=== PATIENT | male | born 1970 | race Caucasian/White ===

== ENCOUNTER 2016-09-27 07:53 | Emergency (ER) | payer SELFPAY ==
[~2016-09-27] VITALS: Ht 195.6 cm; Wt 100.0 kg
[2016-09-27 07:53] VITALS: BP 136/79; PULSE 104; RESP 16; TEMP 100.3; O2SAT 97
--- NOTE | 2016-09-27 09:13 | PD ---
HPI Chief Complaint: Cold / Flu Symptoms Time Seen by Provider: 09:13 Travel History International Travel<30 days: No Contact w/Intl Traveler<30days: No Traveled to known affect area: No History of Present Illness HPI 46-year-old male presents to the emergency department for evaluation of cold symptoms for 1 week, sooner, bilateral lower extremity edema. Patient states he has cough, congestion, body aches for 1 week. He reports he has felt feverish, but has not checked his temperature. Patient is a temperature of 100.3 in triage. Patient does admit to IV drug use. He states he only started 2 days ago and has been injecting IV Dilaudid. Patient is also mildly tachycardic with heart rate 104 in triage. He states he has history of hypothyroidism and is supposed to take Synthroid but is not taking it. Patient also states he has noticed some bilateral lower extremity edema recently after working all day. Patient states the edema is mild at this time. PFSH Past Medical History Diminished Hearing: No Social History Alcohol Use: Yes Tobacco Use: Yes Substance Use: Yes (IV Dilaudid) Allergies-Medications (Allergen,Severity, Reaction): Coded Allergies: No Known Allergies (Unverified , 09/27/16) Reported Meds & Prescriptions Reported Meds & Active Scripts Active Review of Systems Except as stated in HPI: all other systems reviewed are Neg Physical Exam Narrative GENERAL: Well-developed well-nourished male patient, ambulatory. Temp 100.3. SKIN: Warm and dry. HEAD: Normocephalic. Atraumatic. ENT: Mucosa pink and moist. No erythema or exudates. No uvular edema. No uvular , palatal, or tonsillar deviation. Airway patent. Nasal turbinates appear normal without nasal blood, purulent drainage or septal hematoma. Bilateral tympanic membranes are clear without erythema or perforation. EYES: No scleral icterus. No injection or drainage. NECK: Supple, trachea midline. No JVD or lymphadenopathy. CARDIOVASCULAR: Regular rhythm without murmurs, gallops, or rubs. Patient is mildly tachycardic. RESPIRATORY: Breath sounds equal bilaterally. No accessory muscle use. Lungs sounds clear to auscultation. GASTROINTESTINAL: Abdomen soft, non-tender, nondistended. MUSCULOSKELETAL: No cyanosis, or edema. BACK: Nontender without obvious deformity. No CVA tenderness. Data Data Last Documented VS Vital Signs Date Time Temp Pulse Resp B/P Pulse Ox O2 Delivery O2 Flow Rate FiO2 09/27/16 07:53 100.3 104 16 136/79 97 Room Air MDM Medical Decision Making Medical Screen Exam Complete: Yes Emergency Medical Condition: Yes Medical Record Reviewed: Yes Differential Diagnosis Pneumonia versus influenza versus viral syndrome versus endocarditis versus sepsis Narrative Course 46-year-old male presents to the emergency department for evaluation of cold symptoms for 1 week, fever, bilateral lower extremity edema. Patient is an IV drug user. He has a temperature 100.3 and is mildly tachycardic at 104. Patient is originally seen and evaluated in fast track. He is moved to medical pod for further evaluation and disposition. Dee Dee Cid Sep 27, 2016 09:13
[2016-09-27] MEDS ORDERED: SYNT25TA PO (09:20)
[2016-09-27] MEDS ORDERED: SODIUM CHLOR 0.9% 1000 ML INJ 1,000 ML IV SCH (09:29)
[2016-09-27] MEDS ORDERED: SODIUM CHLORIDE 0.9% FLUSH 5 ML FLUSH IVF PRN (09:30)
[2016-09-27] MEDS ORDERED: ACETAMINOPHEN 325 MG TAB PO ONE (09:30)
--- NOTE | 2016-09-27 09:35 | PD ---
Physical Exam Date Seen by Provider: Sep 27, 2016 Narrative The patient presents to the [facility] following triage for evaluation of cough and fever. Please see the H&P done by the PA in triage. Data Data Last Documented VS Vital Signs Date Time Temp Pulse Resp B/P Pulse Ox O2 Delivery O2 Flow Rate FiO2 09/27/16 11:26 70 16 108/59 95 09/27/16 07:53 100.3 Room Air Orders Electrocardiogram (09/27/16 09:29) Basic Metabolic Panel (Bmp) (09/27/16 09:29) Complete Blood Count With Diff (09/27/16 09:29) Lactic Acid Sepsis Protocol (09/27/16 09:29) Blood Culture (09/27/16 09:29) Sputum Culture And Gram Stain (09/27/16 09:29) Chest, Single Ap (09/27/16 09:29) Sodium Chlor 0.9% 1000 Ml Inj (Ns 1000 M (09/27/16 09:29) Sodium Chloride 0.9% Flush (Ns Flush) (09/27/16 09:30) Acetaminophen (Tylenol) (09/27/16 09:30) Influenzae A/B Antigen (09/27/16 09:29) Sodium Chlor 0.9% 1000 Ml Inj (Ns 1000 M (09/27/16 10:45) Labs Laboratory Tests Test 09/27/16 09/27/16 09:45 09:51 White Blood Count 4.2 TH/MM3 Red Blood Count 4.28 MIL/MM3 Hemoglobin 13.0 GM/DL Hematocrit 38.2 % Mean Corpuscular Volume 89.2 FL Mean Corpuscular Hemoglobin 30.4 PG Mean Corpuscular Hemoglobin 34.1 % Concent Red Cell Distribution Width 14.0 % Platelet Count 132 TH/MM3 Mean Platelet Volume 8.4 FL Neutrophils (%) (Auto) 91.2 % Lymphocytes (%) (Auto) 4.3 % Monocytes (%) (Auto) 3.9 % Eosinophils (%) (Auto) 0.4 % Basophils (%) (Auto) 0.2 % Neutrophils # (Auto) 3.9 TH/MM3 Lymphocytes # (Auto) 0.2 TH/MM3 Monocytes # (Auto) 0.2 TH/MM3 Eosinophils # (Auto) 0.0 TH/MM3 Basophils # (Auto) 0.0 TH/MM3 CBC Comment DIFF FINAL Differential Comment Sodium Level 136 MEQ/L Potassium Level 3.2 MEQ/L Chloride Level 105 MEQ/L Carbon Dioxide Level 22.5 MEQ/L Anion Gap 9 MEQ/L Blood Urea Nitrogen 13 MG/DL Creatinine 1.02 MG/DL Estimat Glomerular Filtration 78 ML/MIN Rate Random Glucose 149 MG/DL Calcium Level 8.0 MG/DL Lactic Acid Level 2.5 mmol/L [facility] Supervised Visit with HOMER: Yes Interpretation(s) EKG shows a normal sinus rhythm with no acute ischemic change. He has no old EKGs for comparison. Differential Diagnosis Differential diagnosis includes but is not limited to viral respiratory illness , bronchitis, pneumonia, allergies, CHF, asthma/COPD. Narrative Course Last Impressions Chest X-Ray 09/27/16 09 Signed Impressions: Service Date/Time: Tuesday, September 27, 2016 09:28 - CONCLUSION: 1. Mild patchy opacity at the lung bases with no consolidation. This may represent scarring and or atelectasis. 2. No focal consolidation. Douglas Carballo MD Chest x-ray independently viewed by me. CBC & BMP Diagram 09/27/16 09:45 Lactic acid is 2.5. Flu screen is negative. The patient states that he is feeling much better following fluid resuscitation and Tylenol. I anticipate discharge following his second liter of fluid. Sepsis Criteria SIRS Criteria (2 or more): Heart rate over 90 Severe Sepsis (+one): Lactate >2 Diagnosis Primary Impression: Viral syndrome Additional Impression: Hypokalemia Patient Instructions: General Instructions, Hypokalemia (ED), Viral Syndrome ( ED) Med/Other Pt SpecificInfo: Prescription(s) given Scripts Potassium Chloride ER 20 Meq Tab20 Meq PO BID 5 Days Ref 0 Prov:Jil Melchor MD 09/27/16 Disposition: 01 DISCHARGE HOME Condition: Stable Jil Melchor MD Sep 27, 2016 09:35
--- NOTE | 2016-09-27 09:49 | RADRPT ---
EXAM DATE/TIME: 09/27/2016 09:28 [facility] COMPARISON: No previous studies available for comparison. INDICATIONS : Cough. MEDICAL HISTORY : None. SURGICAL HISTORY : None. ENCOUNTER: Initial ACUITY: 4 - 6 days PAIN SCORE: 0/10 LOCATION: Bilateral chest FINDINGS: A single view of the chest demonstrates the lungs to be symmetrically aerated without evidence of mas s, confluent infiltrate or effusion. There is mild patchy opacity at both lung bases with no consoli dation. The cardiomediastinal contours are unremarkable. There is an old fracture deformity of the ri ght mid clavicle. CONCLUSION: 1. Mild patchy opacity at the lung bases with no consolidation. This may represent scarring and or at electasis. 2. No focal consolidation. Douglas Carballo MD on September 27, 2016 at 9:46 Board Certified Radiologist. This report was verified electronically.
[2016-09-27 10:09] LABS: AUTOMATED NEUTROPHIL # 3.9 TH/MM3 (1.8-7.7); BASOPHIL % 0.2 % (0.0-2.0); EOSINOPHIL % 0.4 % (0.0-4.0); HEMATOCRIT 38.2 % (39.0-51.0); HEMO FLAGS DIFF FINAL; LYMPH % 4.3 % (9.0-44.0); LYMPHOCYTE # 0.2 TH/MM3 (1.0-4.8); MEAN CELL VOLUME 89.2 FL (80.0-100.0); MEAN CORPUSCULAR HEMOGLOBIN 30.4 PG (27.0-34.0); MEAN CORPUSCULAR HGB CONC 34.1 % (32.0-36.0); MONO % 3.9 % (0.0-8.0); NEUT % 91.2 % (16.0-70.0); PLATELET COUNT 132 TH/MM3 (150-450); RED BLOOD COUNT 4.28 MIL/MM3 (4.50-5.90); WHITE BLOOD COUNT 4.2 TH/MM3 (4.0-11.0)
[2016-09-27 10:23] LABS: BICARBONATE 22.5 MEQ/L (21.0-32.0); POTASSIUM 3.2 MEQ/L (3.5-5.1)
[2016-09-27] MEDS ORDERED: SODIUM CHLOR 0.9% 1000 ML INJ 1,000 ML IV ONE (10:45)
[2016-09-27 11:26] VITALS: BP 108/59; PULSE 70; RESP 16; O2SAT 95
[2016-09-27] MEDS ORDERED: POTA-163 PO (11:46)
[2016-09-27 11:57] LABS: LACTIC ACID GHOST NOT REPORTABLE
--- NOTE | 2016-09-28 08:15 | EKG ---
Date Performed: 09/27/2016 Time Performed: 11:10:26 PTAGE: 46 years EKG: Sinus rhythm POSSIBLE INFERIOR MYOCARDIAL INFARCTION BORDERLINE ECG WARNING: DATA QUALITY MAY AFFECT INTERPRETATI ON NO PREVIOUS TRACING DOCTOR: Too [place] Interpretating Date/Time 09/28/2016 08:13:15
== END 2016-09-27 15:13 | disposition home or self-care (01) ==
LOC: NEPB 07:53 → NEPA 15:13
DX: B34.9 Viral infection, unspecified (principal); E87.6 Hypokalemia; R05 Cough; R94.31 Abnormal electrocardiogram [ECG] [EKG]; R50.9 Fever, unspecified; Z72.0 Tobacco use; F11.90 Opioid use, unspecified, uncomplicated
CPT/HCPCS: 71010; 80048; 83605; 85025; 87040; 87804; 93005; 96360; 96361; 99285; J7030